=== PATIENT | male | born 1945 | race Caucasian/White ===

== ENCOUNTER 2017-03-20 07:39 | Outpatient (CLI) | payer MEDICARE, OTHER ==
[~2017-03-20] VITALS: Ht 177.8 cm; Wt 113.6 kg
--- NOTE | ~2017-03-20 | HEMODYNAMI ---
PATIENT:JOEL CASTILLO MEDICAL RECORD: [id number] : 43 LOCATION:[facility] ADMISSION DATE: 03/20/17 Generatedon:03/20/201710:19 Patient name: JOEL CASTILLO Patient #: [id number] SSN: : 1945 Date of study: 03/20/2017 Page: Of Hemodynamic Procedure Report Patient Data Patient Demographics Procedure consent was obtained First Name: JOEL Gender: Male Last Name: JONATHAN : 1945 [facility] Initial: KYLIE Age: 71 year(s) Patient #: [id number] Race: Unknown Additional ID: [id number] Contact details Address: [address] [place] [address] State: [place] City: [place] Zip code: [address] Past Medical History Allergies: No known allergies Admission Admission Data Admission Date: 03/20/2017 Admission Time: 7:39 Admit Source: Other Lab Results Lab Result Date: 03/20/2017 Lab Result Time: 0:00 Biochemistry Name Units Result Min Max BUN mg/dl 17 --(---*)-- 7 18 Creatinine mg/dl 1 --(--*-)-- 0.6 1.3 CBC Name Units Result Min Max Hemoglobin g/dl 15.8 --(--*-)-- 13.5 17.5 Procedure Procedure Types Cath Procedure Diagnostic Procedure LHC [facility] w/Coronaries Miscellaneous Procedures Moderate Sedation up to 15 minutes Procedure Description Procedure Date Procedure Date: 03/20/2017 Procedure Start Time: 10:04 Procedure End Time: 10:18 Procedure Staff Name Function Diony Huertas MD Performing Physician Dalila Nelson RN Nurse Kedar Hinojosa RT Monitor Promise Miranda RT Scrub Procedure Data Cath Procedure Fluoroscopy Diagnostic fluoroscopy Total fluoroscopy Time: 2.4 time: 2.4 min min Diagnostic fluoroscopy Total fluoroscopy dose: 609 dose: 609 mGy mGy Contrast Material Contrast Material Type Amount (ml) Isovue 300 76 Entry Location Entry Primary Successful Side Size Upsize Upsize Entry Closure Phelps ccessful Closure Location (Fr) 1 (Fr) 2 (Fr) Remarks Device Remarks Radial Right 6 Fr Mechanical artery Short Compression Diagnostic catheters Device Type Used For End Catheter Placement Diagnostic Infinity 5Fr Right Coronary AR 2 MOD catheter Angiography Procedure Complications No complications Procedure Medications Medication Administration Route Dosage Oxygen NC 2 l/min Lidocaine 2% added to field 20 Heparin Flush Bag added to field 2 bags (1000units/500ml NS) 0.9% NaCl I.V. 100 ml/hr Versed I.V. 1 mg Fentanyl I.V. 50 mcg Versed I.V. 1 mg Fentanyl I.V. 50 mcg Versed I.V. 1 mg Fentanyl I.V. 50 mcg Radial Cocktail I.A. 1 syringe (Verapomil 2mg/Nitro 400mcg/Heparin 1500units) Versed I.V. 1 mg Fentanyl I.V. 50 mcg Versed I.V. 1 mg Hemodynamics Rest HGB: 15.8 (g/dl) Heart Rate: 88 (bpm) Snapshots Pre Cath Intra NCS Post Cath Vital Signs Time Heart Resp SPO2 etCO2 [id number] NIBP (mmHg) Rhythm Pain Sedation Rate (ipm) (%) (mmHg) (mmHg) Status Level (bpm) 9:19:30 103 19 99 0 0 162/87(132) NSR 0 (11) 10(A) , No pain 9:23:50 87 18 95 0 0 140/81(110) NSR 0 (11) 10(A) , No pain 9:28:06 89 21 97 0 0 154/85(118) NSR 0 (11) 10(A) , No pain 9:32:24 85 18 96 0 0 142/72(111) NSR 0 (11) 10(A) , No pain 9:36:44 89 19 96 0 0 150/70(110) NSR 0 (11) 10(A) , No pain 9:41:02 80 16 95 0 0 132/71(95) NSR 0 (11) 10(A) , No pain 9:45:14 80 15 95 0 0 132/78(101) NSR 0 (11) 10(A) , No pain 9:49:30 77 16 95 0 0 135/72(105) NSR 0 (11) 10(A) , No pain 9:53:46 83 19 96 0 0 142/74(113) NSR 0 (11) 10(A) , No pain 9:58:02 81 18 94 0 0 121/71(97) NSR 0 (11) 10(A) , No pain 10:03:10 79 14 95 0 0 131/70(105) NSR 0 (11) 10(A) , No pain 10:08:29 85 17 94 0 0 109/57(87) NSR 0 (11) 9(A) , No pain 10:12:37 90 16 95 0 0 124/71(98) NSR 0 (11) 10(A) , No pain 10:16:53 87 18 95 0 0 134/66(89) NSR 0 (11) 10(A) , No pain Medications Time Medication Route Dose Verified Delivered Reason Notes Effectiveness by by 9:21:39 Oxygen NC 2 l/min Diony Buffie used for Kiya Nelson RN procedure 9:21:48 Lidocaine 2% added 20ml Diony Diony for local to vial Kiya Huertas MD anesthetic field 9:21:54 Heparin Flush added 2 bags Diony Vora used for Bag to Kiya Huertas MD procedure (1000units/500ml field NS) 9:22:18 0.9% NaCl I.V. 100 Diony Buffie Per ml/hr Kiya Nelson RN physician 9:55:32 Versed I.V. 1 mg Diony Jeffreyie for sedation Kiya Nelson RN 9:55:38 Fentanyl I.V. 50 mcg Diony Buffie for sedation Kiya Nelson RN 9:58:26 Versed I.V. 1 mg Diony Buffie for sedation Kiya Nelson RN 9:58:30 Fentanyl I.V. 50 mcg Diony Buffie for sedation Kiya Nelson RN 10:03:57 Versed I.V. 1 mg Diony Buffie for sedation Kiya Nelson RN 10:04:00 Fentanyl I.V. 50 mcg Diony Buffie for sedation Kiya Nelson RN 10:05:24 Radial Cocktail I.A. 1 Diony Diony for (Verapomil syringe Kiya Huertas MD vasodilation 2mg/Nitro 400mcg/Heparin 1500units) 10:07:39 Versed I.V. 1 mg Diony Diony for sedation Kiya Huertas MD 10:07:44 Fentanyl I.V. 50 mcg Diony Vora for sedation Kiya Huertas MD 10:10:19 Versed I.V. 1 mg Diony Vora for sedation Kiya Huertas MD Procedure Log Time Note 8:59:02 Informed consent obtained and on chart 8:59:32 Admit Source: Other 8:59:35 Diagnostic Cath status Elective 8:59:38 Kedar Hinojosa RT(R) sent for patient. Start room use. 8:59:39 Time tracking: Regular hours 8:59:43 Plan of Care:Hemodynamics will remain stable., Cardiac rhythm will remain stable., Comfort level will be maintained., Respiratory function will remain adequate., Patient/ family verbilizes understanding of procedure., Procedure tolerated without complication., Recovers from procedure without complications.. 9:04:54 ACC Patient presents with Stable Angina CCS Anginal Class 2--Slight limitation of ordinary activity. 9:05:26 Lab Result : BUN 17 mg/dl 9::26 Lab Result : Hemoglobin 15.8 g/dl 9::26 Lab Result : Creatinine 1 mg/dl 9:05:29 Lab results completed and on chart. 9:18:17 Patient received from Pre/Post Procedure Room to CCL 1 Alert and oriented. Tansferred to table in Supine position. 9:18:18 Warm blankets applied, and alexis hugger turned on for patient comfort. 9:18:19 Correct patient and procedure confirmed by team. 9:18:20 ECG and BP/O2 sat monitors applied to patient. 9:18:21 Vital chart was started 9:21:39 Oxygen 2 l/min NC was administered by Dalila Nelson RN; used for procedure; 9:21:48 Lidocaine 2% 20ml vial added to field was administered by Diony Huertas MD; for local anesthetic; 9:21:54 Heparin Flush Bag (1000units/500ml NS) 2 bags added to field was administered by Diony Huertas MD; used for procedure; 9:22:18 0.9% NaCl 100 ml/hr I.V. was administered by Dalila Nelson RN; Per physician; 9:23:29 Baseline sample Acquired. 9:23:32 Rhythm: sinus rhythm 9:23:33 Full Disclosure recording started 9:23:44 H&P Date Dictated: 03/08/2017 Within 30 days and on chart., H&P Addendum completed by physician on day of procedure. (MUST COMPLETE FOR ALL OUTPATIENTS). 9:23:45 Pre-procedure instructions explained to patient. 9:23:45 Pre-op teaching completed and patient verbalized understanding. 9:23:47 Family in waiting room. 9:23:49 Patient NPO since Midnight. 9:23:56 Patient allergic to No known allergies 9:23:59 Is the patient allergic to Iodine/contrast media? No. 9:24:04 Is patient on blood thinner?Yes 9:24:07 ACC The patient was administered the following blood thiners within the last 24 hours: ACCPlavix 9:24:10 Patient diabetic? Yes. 9:24:12 If diabetic: On Metformin? Yes 9:24:14 If on Metformin: Last Dose? 03/17/2017 9:24:16 ----Pre-sedation anethsthesia assessment.---- 9:24:18 Previous problem with sedation/anesthesia? No ? 9:24:20 Snore? Yes 9:24:21 Sleep apnea? Yes 9:24:22 Deviated septum? No 9:24:24 Opens mouth fully? Yes 9:24:25 Sticks out tongue? Yes 9:24:27 Airway obstruction? No ? 9:24:29 Dentures? No ? 9:24:31 Pre procedure: right dorsailis pedis pulse 1+ Palpable, but thready & weak; easily obliterated 9:24:34 Modified Ian's test Ulnar > 7 seconds. 9:24:38 Patient pain scale 1/10 ?. 9:24:40 Patient pain scale 0/10 ?. 9:24:44 IV patent on arrival in left hand with 0.9% NaCl at 10ml/hr. 9:24:50 Right Radial & Right Groin area was prepped with chlora-prep and draped in sterile fashion 9:24:51 Alarms reviewed by R. N. 9:24:52 Sharps counted by scrub and verified by R.N. 9:25:10 Use device set Radial Dx 9:25:20 Acist Syringe opened to sterile field. 9:25:20 Medline Cath Pack opened to sterile field. 9:25:20 Bag Decanter opened to sterile field. 9:25:21 Terumo 6Fr Slender Glidesheath opened to sterile field. 9:25:21 St Vinod 260cm J .035 wire opened to sterile field. 9:25:22 Acist Hand Control opened to sterile field. 9:25:22 Acist Manifold opened to sterile field. 9:25:23 Tegaderm 4 x 4 opened to sterile field. 9:25:31 MBrace Wrist Support opened to sterile field. 9:32:56 Zero performed for pressure channel P1 9::52 --------ALL STOP TIME OUT------ ::53 Final Timeout: patient, procedure, and site verified with staff and physician. All members of the team are in agreement. 9:52:55 Right Radial & Right Groin site verified by team. 9:52:58 Physical assessment completed. ASA score P 2 - A patient with mild systemic disease as per Diony Huertas MD. 9:53:03 Sedation plan: IV Moderate Sedation Versed, Fentanyl 9:55:32 Versed 1 mg I.V. was administered by Dalila Nelson RN; for sedation; 9:55:38 Fentanyl 50 mcg I.V. was administered by Dalila Nelson RN; for sedation; 9:58:26 Versed 1 mg I.V. was administered by Dalila Nelson RN; for sedation; 9:58:30 Fentanyl 50 mcg I.V. was administered by Dalila Nelson RN; for sedation; 10:03:57 Versed 1 mg I.V. was administered by Dalila Nelson RN; for sedation; 10:04:00 Fentanyl 50 mcg I.V. was administered by Dalila Nelson RN; for sedation; 10:04:42 Procedure started. 10:04:56 Local anesthetic to right radial artery with Lidocaine 2% by Diony Huertas MD.INITIAL ACCESS ONLY 10:05:06 A 6 Fr Short sheath was inserted into the Right Radial artery 10:05:24 Radial Cocktail (Verapomil 2mg/Nitro 400mcg/Heparin 1500units) 1 syringe I.A. was administered by Diony Huertas MD; for vasodilation; 10:07:17 5 Fr SceneShot ULTIMATE 1 guide catheter was inserted over the wire 10:07:25 LV angiography performed. 10:07:29 EF : 55 % 10:07:32 Injector settings: Ml/sec: 5, Volume: 15, 10:07:38 LV gram done using LIND 10:07:39 Versed 1 mg I.V. was administered by Diony Huertas MD; for sedation; 10:07:44 Fentanyl 50 mcg I.V. was administered by Diony Huertas MD; for sedation; 10:07:48 LCA angiography performed. 10:09:51 Catheter removed. 10:10:19 Versed 1 mg I.V. was administered by Diony Huertas MD; for sedation; 10:10:22 A Diagnostic Infinity 5Fr AR 2 MOD catheter was advanced over the wire and used for Right Coronary Angiography. 10:11:06 RCA angiography performed. 10:11:08 Catheter removed. 10:13:07 Terumo TR Band Standard opened to sterile field. 10:13:18 Sheath removed intact; hemostasis achieved with Mechanical Compression to the Right Radial artery. 10:13:21 Procedure ended.(Physican Out) 10:13:34 Fluoroscopy time 02.40 minutes. 10:13:40 Fluoroscopy dose: 609 mGy 10:13:40 Flurop Dose total: 609 10:17:05 Contrast amount:Isovue 300 76ml. 10:17:06 Sharps counted by scrub and verified by R.N. 10:17:08 TR band inflated with 10cc of air. 10:17:10 Insertion/operative site no bleeding no hematoma. 10:17:14 Post right radial artery:stable 10:17:15 Post Procedure Pulses reassessed and unchanged 10:17:17 Post procedure rhythm: sinus rhythm 10:17:19 Post procedure instruction explained to patient.Patient verbalizes understanding. 10:17:20 Procedure and supply charges have been captured, reviewed, submitted and are correct. 10:17:34 Procedure type changed to Cath procedure, Diagnostic procedure, LHC, LHC w/Coronaries, Miscellaneous Procedures, Moderate Sedation up to 15 minutes 10:18:27 Procedure Complication : No complications 10:18:30 Vital chart was stopped 10:18:30 See physician's report for complete and final results. 10:18:32 Report given to Pre/Post Procedure Room. 10:18:36 Patient transfered to Pre/Post Procedure Room with Stretcher. 10:18:39 Procedure ended. 10:18:39 Full Disclosure recording stopped 10:18:42 End room use (Document Last) Device Usage Item Name Manufacture Quantity Catalog Hospital Part Current Minimal Lot# / Number Charge Number Stock Stock Serial# Code Acist Acist 1 [id number] [id number] [id number] 20 Syringe [employer] Inc Medline Cardinal 1 [id number] 54275 812377 5 Cath Pack Health Bag Microtek 1 2002S [id number] 02900 932500 5 Decanter Medical Inc. Terumo 6Fr Terumo 1 [id number] 119334 967462 064944 [address] Vin[address] St Vinod 1 [id number] 759289 671349 30 260cm J .035 wire Acist Hand Acist 1 38081 769636 836487 286585 5 Control [employer] Inc Acist Acist 1 30476 239649 715128 440995 5 Manifold Medical [employer] Inc Tegaderm 4 3M 1 [id number] 374743 069722 467571 5 x 4 MBrace Advanced 1 140-0250-00 609541 16191 916900 5 Wrist Vascular Support Dynamics Diagnostic Cardinal 1 [id number] 900258 917892 178741 20 Infinity Health 5Fr AR 2 MOD catheter Terumo TR Terumo 1 [id number] [id number] 583789 [id number] 40 Band Standard Signature Audit [place] Stage Time Signature Unsigned Intra-Procedure 03/20/2017 Kedar Hinojosa 10:19:27 AM RT(R) Signatures Monitor : Kedar Hinojosa RT Signature : Date : Time : [facility] [address] [place] [address]
[2017-03-20] MEDS ORDERED: PLAVIX75 MG PO (07:54)
[2017-03-20] MEDS ORDERED: COZAAR100 MG PO (07:55)
[2017-03-20] MEDS ORDERED: TESTOSTERON200 MG/ML IM (07:55)
[2017-03-20] MEDS ORDERED: GLUCOPHAGE500 MG PO (07:58)
[2017-03-20] MEDS ORDERED: MAXZIDE 75/501 TAB PO (07:58)
[2017-03-20] MEDS ORDERED: OMEPRAZOLE40 MG PO (07:59)
[2017-03-20] MEDS ORDERED: GLUCOTROL 5 MG T5 MG PO (08:00)
[2017-03-20 08:09] VITALS: BP 149/80; Ht 177.8 cm; Wt 113.6 kg
[2017-03-20 08:16] LABS: BASOPHILS 0.6 % (0-2); EOSINOPHILS 4.1 % (0-7); HEMATOCRIT 45.6 % (42.0-54.0); HEMOGLOBIN 15.8 g/dL (13.5-17.5); IMMATURE GRANULOCYTES 0.2 % (0-5); LYMPHOCYTES 28.6 % (15-50); MCH 31.1 pg (26.0-34.0); MCHC 34.6 g/dL (31.0-37.0); MCV 89.8 fL (80.0-100.0); MEAN PLATELET VOLUME 10.1 fL (7.4-10.4); MONOCYTES 6.9 % (2-11); NEUTROPHILS 59.6 % (40-80); PLATELET COUNT 132 10x3/uL (130-400); RBC 5.08 10x6/uL (4.20-6.10); RDW 12.3 % (11.5-14.5); WBC 4.9 10x3/uL (4.8-10.8)
[2017-03-20 08:44] LABS: CALC OSMOLALITY 286 mosm/kg (275-300); CALCIUM 9.1 mg/dL (8.5-10.1); CARBON DIOXIDE 26.1 mmol/L (21.0-32.0); CHLORIDE - SERUM 102 mmol/L (98-107); GLUCOSE 216 mg/dL (74-106); POTASSIUM - SERUM 3.9 mmol/L (3.5-5.1); SODIUM 139 mmol/L (136-145); UREA NITROGEN 17 mg/dL (7-18); eGFR NON AFRICAN AMERICAN 78 mL/min (90-120)
--- NOTE | 2017-03-20 10:30 | NUR ---
1030 RECIEVED TO ROOM VIA STRETCHER FROM FLUID DESIGNER WITH REPORTS OF A CLEAN CATH NO INTERVENTION AT THIS TIME. TR BAND TO R/WRIST CDI NO BLEEDING NO HEMATOMA NOTED. VSS WITH CHEST PAIN DENIED WILL MONITOR
--- NOTE | 2017-03-20 10:45 | NUR ---
1045 SITTING WITH HOB UP 30 DEGREES VSS WITH CHEST PAIN DENIED. TR BAND REMAINS TO R/WRIST CDI NO BLEEDING NO HEMATOMA NOTED.
--- NOTE | 2017-03-20 11:14 | NUR ---
SANDWICH AND SODA TO BEDSIDE WITH VSS
--- NOTE | 2017-03-20 11:38 | NUR ---
VSS WITH NEEDS DENIED TR BAND REMAINS TO R/WRIST CDI NO BLEEDING NO HEMATOMA NOTED.
--- NOTE | 2017-03-20 12:00 | NUR ---
1200 2 CC AIR REMOVED FROM TR BAND WITH NO BLEEDING NO HEMATOMA NOTED
--- NOTE | 2017-03-20 12:15 | NUR ---
2 CC AIR REMOVED FROM TR BAND NO BLEEDING NOTED
--- NOTE | 2017-03-20 12:22 | NUR ---
PIV REMOVED WITH PRESSURE HELD AND DRESSING APPLIED. PATIENT UP TO GET DRESSED FOR DISCHARGE WITH CHEST PAIN
--- NOTE | 2017-03-20 12:25 | NUR ---
VERBAL AND WRITTEN DISCHARGE GONE OVER WITH PATIENT AND FAMILY ALL VERBALIZED UNDERSTANDING. TR BAND REMOVED WITH DRESSING APPLIED NO BLEEDING NO HEMATOMA NOTED. PATIENT LEFT VIA WC TO PARKING FOR TO DRIVE HOME
--- NOTE | 2017-03-22 13:54 | OP ---
PATIENT NAME: JOEL CASTILLO MEDICAL RECORD: [id number] :43 LOCATION:[facility] ADMISSION DATE: SURGEON: HENRIETTA LEE MD OPERATION DATE: 03/20/17 DATE OF OPERATION: 03/20/2017 PROCEDURES: 1. Left heart catheterization. 2. Selective coronary angiography. 3. Left ventriculogram. INDICATION: Chest pain compatible with angina. PROCEDURE IN DETAIL: After informed consent was obtained and after a detailed explanation of the risks, benefits as well as alternative therapies, the patient elected to proceed with angiogram and heart catheterization. The right radial area was prepped and draped in normal sterile fashion. The radial artery was cannulated via modified Seldinger technique with placement of 5-Sinhala sheath. All catheters exchanged through this sheath. FINDINGS: The left ventriculogram was performed in standard 30-degree LIND view, reveals good cardiac wall motion throughout all segments. Overall ejection fraction 55% to 60%. SELECTIVE CORONARY ANGIOGRAPHY: 1. Left main showed no significant angiographic disease. 2. Left anterior descending has moderate irregularities, but no flow-limiting stenosis. 3. The left circumflex has moderate irregularities, but no flow-limiting stenosis. 4. The right coronary has no significant disease. OVERALL IMPRESSION: No significant coronary artery disease is present. Normal left ventricular function. Chest pain is noncardiac in etiology. TRANSINT:[id number] Voice Confirmation ID: [id number] DOCUMENT ID: [id number] HENRIETTA LEE MD at 1354 CC: [id number] DICTATION DATE: 03/20/17 1018 SR. MANAGER CORPORATE COMMUNICATIONS: 03/20/17 1152 DEP CLI 03/20/17 [id number] [place] [address]
== END 2017-03-20 12:27 | disposition home or self-care (01) ==
LOC: D.CATH 07:39
PROVIDERS: Internal Medicine Interventional Cardiology
DX: R07.89 Other chest pain (principal); Z01.812 Encounter for preprocedural laboratory examination